=== PATIENT | female | born 1950 | race Caucasian/White ===

== ENCOUNTER 2020-11-26 12:46 | Inpatient (IN) ==
[2020-11-26] MEDS ORDERED: *HR* HYDROcodone/Acet 10/325 mg TABLET PO PRN (17:38)
[2020-11-26] MEDS: Pregabalin 75 MG CAPSULE PO SCH (21:39)
[2020-11-26] MEDS: traZODone 50 MG TABLET PO SCH (21:39)
[2020-11-26] MEDS: Doxycycline 100 MG CAPSULE PO SCH (21:40)
[2020-11-26] MEDS: Apixaban 5 MG TABLET PO SCH (21:40)
[2020-11-27 04:27] LABS: Immature Granulocytes % 0.5 % (0-4); Lymphocytes # 0.7 K/mcL (0.6-4.6); Lymphocytes % 5.3 %; Mean Corpuscular HGB Conc 31.3 g/dL (31.6-35.5); Mean Corpuscular Hemoglobin 29.9 pg (28.0-33.3); Mean Corpuscular Volume 95.5 fL (83.0-100.0); Mean Platelet Volume 12.3 fL (9.4-12.4); Monocytes # 0.6 K/mcL (0.0-1.3); Monocytes % 4.9 %; Platelet Count 306 K/mcL (140-400); Red Blood Count 3.35 M/mcL (3.82-4.97); Red Cell Distribution Width 19.3 % (11.5-14.5); Segmented Neutrophils % 89.3 %; White Blood Count 12.3 K/mcL (4.3-11.1)
[2020-11-27 05:21] LABS: Calcium 9.5 mg/dL (8.6-10.3); Potassium 4.7 mEq/L (3.5-5.1)
[2020-11-27] MEDS: amLODIPine 5 MG TABLET PO SCH (08:24)
[2020-11-27] MEDS: Ascorbic Acid 500 MG TABLET PO SCH (08:24)
[2020-11-27] MEDS: Pregabalin 75 MG CAPSULE PO SCH ×2 (08:24→22:05)
[2020-11-27] MEDS: Cholecalciferol (D-3) 1,000 UNIT (25MCG) TABLET PO SCH (08:25)
[2020-11-27] MEDS: Multivit/Ca/Min/Fe/FA 1 TAB TABLET PO SCH (08:25)
[2020-11-27] MEDS: Doxycycline 100 MG CAPSULE PO SCH ×2 (08:25→22:05)
[2020-11-27] MEDS: Apixaban 5 MG TABLET PO SCH ×2 (08:26→22:07)
[2020-11-27] MEDS: Linaclotide [Linzess] 145 MCG PO SCH (08:26)
[2020-11-27] MEDS ORDERED: Furosemide 20 MG TABLET PO SCH (09:00)
[2020-11-27] MEDS ORDERED: 0.9 % Sodium Chloride 1,000 ML IVC SCH ×2 (15:45→16:43)
[2020-11-27] MEDS: traZODone 50 MG TABLET PO SCH (22:05)
[2020-11-28] MEDS: *HR* HYDROcodone/Acet 10/325 mg TABLET PO PRN ×2 (05:40→12:43)
[2020-11-28 08:32] LABS: Hematocrit 31.6 % (35.3-44.9); Hemoglobin 9.7 g/dL (11.5-15.4); Mean Corpuscular HGB Conc 30.7 g/dL (31.6-35.5); Mean Corpuscular Volume 97.8 fL (83.0-100.0); Mean Platelet Volume 12.3 fL (9.4-12.4); Platelet Count 282 K/mcL (140-400); Red Blood Count 3.23 M/mcL (3.82-4.97); Red Cell Distribution Width 19.7 % (11.5-14.5); White Blood Count 14.5 K/mcL (4.3-11.1)
[2020-11-28 09:23] LABS: Calcium 9.1 mg/dL (8.6-10.3); Magnesium 2.6 mg/dL (1.6-2.6); Phosphorous 5.1 mg/dL (2.7-4.5); Potassium 5.1 mEq/L (3.5-5.1)
[2020-11-28] MEDS: amLODIPine 5 MG TABLET PO SCH (09:39)
[2020-11-28] MEDS: Ascorbic Acid 500 MG TABLET PO SCH (09:39)
[2020-11-28] MEDS: Apixaban 5 MG TABLET PO SCH ×2 (09:40→22:13)
[2020-11-28] MEDS: Multivit/Ca/Min/Fe/FA 1 TAB TABLET PO SCH (09:40)
[2020-11-28] MEDS: Pregabalin 75 MG CAPSULE PO SCH ×2 (09:40→22:13)
[2020-11-28] MEDS: Doxycycline 100 MG CAPSULE PO SCH (09:40)
[2020-11-28] MEDS: Cholecalciferol (D-3) 1,000 UNIT (25MCG) TABLET PO SCH (09:40)
[2020-11-28] MEDS: Linaclotide [Linzess] 145 MCG PO SCH (09:41)
[2020-11-28] MEDS: 0.9 % Sodium Chloride 1,000 ML IVC SCH (22:12)
[2020-11-28] MEDS: traZODone 50 MG TABLET PO SCH (22:12)
[2020-11-29 06:48] LABS: Basophils % 0.1 %; Hematocrit 32.4 % (35.3-44.9); Hemoglobin 10.1 g/dL (11.5-15.4); Immature Granulocytes % 0.4 % (0-4); Lymphocytes # 0.6 K/mcL (0.6-4.6); Lymphocytes % 3.7 %; Mean Corpuscular HGB Conc 31.2 g/dL (31.6-35.5); Mean Corpuscular Hemoglobin 30.3 pg (28.0-33.3); Mean Corpuscular Volume 97.3 fL (83.0-100.0); Mean Platelet Volume 11.9 fL (9.4-12.4); Monocytes # 0.6 K/mcL (0.0-1.3); Monocytes % 4.1 %; Neutrophils # 14.3 K/mcL (1.6-8.9); Platelet Count 266 K/mcL (140-400); Red Blood Count 3.33 M/mcL (3.82-4.97); Red Cell Distribution Width 19.2 % (11.5-14.5); Segmented Neutrophils % 91.7 %; White Blood Count 15.6 K/mcL (4.3-11.1)
[2020-11-29 08:09] LABS: Potassium 5.1 mEq/L (3.5-5.1)
[2020-11-29] MEDS: 0.9 % Sodium Chloride 1,000 ML IVC SCH ×3 (08:29→16:36)
[2020-11-29] MEDS: Pregabalin 75 MG CAPSULE PO SCH ×2 (08:29→20:17)
[2020-11-29] MEDS: Cholecalciferol (D-3) 1,000 UNIT (25MCG) TABLET PO SCH (08:29)
[2020-11-29] MEDS: Ascorbic Acid 500 MG TABLET PO SCH (08:30)
[2020-11-29] MEDS: amLODIPine 5 MG TABLET PO SCH (08:30)
[2020-11-29] MEDS: Multivit/Ca/Min/Fe/FA 1 TAB TABLET PO SCH (08:30)
[2020-11-29] MEDS: Apixaban 5 MG TABLET PO SCH ×2 (08:30→20:17)
[2020-11-29] MEDS: Linaclotide [Linzess] 145 MCG PO SCH (08:31)
[2020-11-29] MEDS: *HR* HYDROcodone/Acet 10/325 mg TABLET PO PRN ×2 (08:53→16:50)
[2020-11-29] MEDS: traZODone 50 MG TABLET PO SCH (20:17)
[2020-11-30] MEDS: 0.9 % Sodium Chloride 1,000 ML IVC SCH ×2 (05:53→18:18)
[2020-11-30 06:54] VITALS: BP 124/77
[2020-11-30 08:03] LABS: Potassium 5.7 mEq/L (3.5-5.1)
[2020-11-30] MEDS: Cholecalciferol (D-3) 1,000 UNIT (25MCG) TABLET PO SCH (09:15)
[2020-11-30] MEDS: Apixaban 5 MG TABLET PO SCH (09:15)
[2020-11-30] MEDS: amLODIPine 5 MG TABLET PO SCH (09:16)
[2020-11-30] MEDS: Pregabalin 75 MG CAPSULE PO SCH (09:16)
[2020-11-30] MEDS: Linaclotide [Linzess] 145 MCG PO SCH (09:16)
[2020-11-30] MEDS: Ascorbic Acid 500 MG TABLET PO SCH (09:16)
[2020-11-30] MEDS: Multivit/Ca/Min/Fe/FA 1 TAB TABLET PO SCH (09:16)
[2020-11-30 09:28] LABS: Basophils % 0.1 %; Hematocrit 36.9 % (35.3-44.9); Hemoglobin 10.7 g/dL (11.5-15.4); Immature Granulocytes % 0.6 % (0-4); Lymphocytes # 0.7 K/mcL (0.6-4.6); Lymphocytes % 4.5 %; Mean Corpuscular Hemoglobin 30.5 pg (28.0-33.3); Mean Corpuscular Volume 105.1 fL (83.0-100.0); Mean Platelet Volume 11.9 fL (9.4-12.4); Monocytes # 0.6 K/mcL (0.0-1.3); Monocytes % 4.3 %; Platelet Count 258 K/mcL (140-400); Red Blood Count 3.51 M/mcL (3.82-4.97); Segmented Neutrophils % 90.5 %; White Blood Count 14.5 K/mcL (4.3-11.1)
[2020-11-30 09:44] LABS: Neutrophils # 13.1 K/mcL (1.6-8.9)
[2020-11-30] MEDS: *HR* HYDROcodone/Acet 10/325 mg TABLET PO PRN (11:09)
[2020-11-30] MEDS ORDERED: Albumin 25% 25gram/100mL 25 GM/100 ML IV.SOLN IVPB SCH (16:00)
[2020-11-30 16:17] LABS: Calcium 8.8 mg/dL (8.6-10.3); Magnesium 2.6 mg/dL (1.6-2.6); Potassium 4.5 mEq/L (3.5-5.1)
== END 2020-11-30 18:15 | disposition short-term general hospital (02) | DRG 945 ==
LOC: INPPIK 16:38
PROVIDERS: ADMIT Family Medicine; ATTEND Family Medicine